=== PATIENT | male | born 1965 | race African-American/Black ===

== ENCOUNTER 2023-07-25 01:31 | Emergency (ER) | payer BC ==
[~2023-07-25] VITALS: Ht 185.4 cm; Wt 122.0 kg
[2023-07-25 01:51] VITALS: O2SAT 99
[2023-07-25] MEDS: DEXAMETHASONE 10 MG/ML VIAL IM ONE (04:00)
[2023-07-25] MEDS: KETOROLAC 60MG/2ML VIAL IM ONE (04:00)
[2023-07-25 05:37] LABS: BASOPHILS % 0.6 % (0.0-2.0); HEMATOCRIT. 43.6 % (42.0-52.0); HEMOGLOBIN. 14.5 g/dL (14.0-18.0); LYMPHOCYTES % 37.4 % (20.0-50.0); MEAN CORPUSCULAR HEMOGLOBIN 29.5 pg (28.0-32.0); MEAN CORPUSCULAR HGB CONC 33.3 g/dL (31.0-37.0); MEAN CORPUSCULAR VOLUME 88.5 fL (80.0-94.0); MEAN PLATELET VOLUME 9.2 fl (7.4-10.4); MONOCYTES % 7.5 % (2.0-8.0); NEUTROPHILS % 50.5 % (40.0-76.0); PLATELET 213 x1000/uL (130-400); RED BLOOD CELL COUNT 4.92 mill/uL (4.7-6.1); RED CELL DISTRIBUTION WIDTH 14.7 % (11.6-14.6); WHITE BLOOD COUNT 8.9 x1000/uL (4.5-11.0)
[2023-07-25 05:47] LABS: CHLORIDE 105 mEq/L (98-107); SODIUM 141 mEq/L (136-145)
[2023-07-25 05:48] LABS: CALCIUM 9.3 mg/dL (8.7-10.4); CARBON DIOXIDE 28 mEq/L (21-32)
[2023-07-25 05:53] LABS: CREATININE 1.3 mg/dL (0.6-1.3); GLUCOSE 110 mg/dL (70-105); UREA NITROGEN BLOOD 11 mg/dL (9-23)
[2023-07-25 05:54] LABS: TROPONIN I HIGH SENSITIVITY 44 ng/L (3.0-53)
[2023-07-25 05:55] LABS: ALANINE AMINOTRANSFERASE 27 IU/L (10-49); ALBUMIN 4.9 g/dL (3.2-4.8); ASPARTATE AMINOTRANSFERASE 39 IU/L (<34); BILIRUBIN TOTAL 0.5 mg/dL (0.1-1.0); PROTEIN TOTAL 8.4 g/dL (6.0-8.3)
[2023-07-25] MEDS ORDERED: P20 MT (06:36)
[2023-07-25] MEDS ORDERED: CYCL5TAB MT (06:36)
[2023-07-25] MEDS ORDERED: NAP5EC MT (06:36)
[2023-07-25 06:53] VITALS: BP 138/86; PULSE 71; RESP 17; TEMP 98.3
== END 2023-07-25 06:55 | disposition home or self-care (01) ==
LOC: ER 01:31
DX: M54.12 Radiculopathy, cervical region (principal); I10 Essential (primary) hypertension
CPT/HCPCS: 80053; 83880; 85025; 84484; 36415; 71045; 73030; 93005; 96372; 99285; J1100; J1885; Z7610